=== PATIENT | male | born 1935 | race African-American/Black ===

== ENCOUNTER 2019-04-12 10:11 | Emergency (ER) | payer OTHER ==
[2019-04-12 11:33] LABS: Absolute Lymphocytes (CBC) 0.8 K/uL (0.7-4.9); Basophils % 0.3 % (0-1.3); Hematocrit 30.8 % (39.6-49.0); Lymphocytes % 8.6 % (15.3-44.8); MPV 8.6 fL (7.6-11.3); RBC Red Blood Cell Count 3.06 M/uL (4.33-5.43)
--- NOTE | 2019-04-12 11:37 | RAD REPORT ---
EXAM DESCRIPTION: RAD - Chest Single View - 04/12/2019 11:29 am CLINICAL HISTORY: Syncope Chest pain. COMPARISON: CHEST SINGLE VIEW dated 02/04/2015; CHEST SINGLE VIEW dated 12/04/2012; CHEST PA AND LAT 2 VIEW dated 06/15/2008; CHEST SINGLE VIEW dated 11/20/2007 FINDINGS: Portable technique limits examination quality. The lungs are underinflated but grossly clear. The heart is normal in size. Prominent tortuous thorac ic aorta.
[2019-04-12 11:48] LABS: Protime INR 1.48
[2019-04-12 11:59] LABS: ALT/SGPT 20 U/L (12-78); AST/SGOT 27 U/L (15-37); Albumin 2.9 g/dL (3.4-5.0); Alkaline Phosphatase 210 U/L (45-117); BUN Blood Urea Nitrogen 16 mg/dL (7-18); Bicarbonate 28 mmol/L (21-32); Bilirubin Direct 0.2 mg/dL (0-0.2); Bilirubin Total 0.6 mg/dL (0.2-1.0); Glucose Level 172 mg/dL (74-106); Magnesium 1.8 mg/dL (1.8-2.4); NT PRO-BNP 595 pg/mL (<450); Protein, Total 7.8 g/dL (6.4-8.2); Sodium Level 137 mmol/L (136-145); Troponin (Emerg Dept Use Only) < 0.02 ng/mL (0.0-0.045)
[2019-04-12] MEDS ORDERED: NA CHLORIDE 0.9% 500 ML ONE (12:34)
--- NOTE | 2019-04-12 13:24 | RAD REPORT ---
EXAM DESCRIPTION: CT - Head Brain Wo Cont - 04/12/2019 1:08 pm CLINICAL HISTORY: Syncope COMPARISON: 2014 TECHNIQUE: Computed axial tomography of the head was obtained. IV contrast was not requested. All CT scans are performed using dose optimization technique as appropriate and may include automated exposure control or mA/KV adjustment according to patient size. FINDINGS: 6 centimeter area of increased density in a gyriform distribution within the left parietal lobe has the appearance of hemorrhagic infarction. There is no shift of midline structures. The ventricles are normal in caliber. No extra-axial fluid collection is noted. Mild to moderate low-density areas within periventricular, deep and subcortical white matter likely r epresent ischemic changes secondary to small vessel disease. Fluid within the sinuses/ mastoids is not seen. 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 A less likely consideration is that there is a component of hemorrhagic metastatic disease. Follow-up with MRI would be helpful Exam discussed with Dr Rosenthal in the Emergency Room at 1:15 p.m. April 12, 2019
--- NOTE | 2019-04-12 13:24 | EKG ---
Test Date: 2019-04-12 Test Time: 10:40:02 Safety Director: FELIX MEASUREMENT RESULTS: Intervals: Rate: 67 NE: 212 QRSD: 72 QT: 380 QTc: 401 Upper Tract: P: 93 NE: 212 QRS: 72 T: 58 INTERPRETIVE STATEMENTS: Sinus rhythm with 1st degree AV block Otherwise normal ECG Compared to ECG 02/05/2015 06:29:15 Atrial premature complex(es) no longer present Electronically Signed On 04-12-19 13:24:25 POLICE RESERVES COMMANDER by Spencer Gonzalez
--- NOTE | 2019-04-12 13:31 | ER ---
Nurse's Notes [facility] Name: Markell Bingham Sr Age: 83 yrs Sex: Male : 1935 Arrival Date: 04/12/2019 Time: 10:22 Bed 18 Private MD: Diagnosis: 6 CM hemorrhagic infarct left parietal lobe Presentation: 04/12 10:22 Presenting complaint: EMS states: pt had a syncopal episode this morning. Family ca1 reports pt has been lethargic and weak for the past few days. Pt has Stage 4 Liver and Pancreatic Cancer diagnosed 6 months ago. Pt was on chemo but stopped when he had a stroke on this year. R sided stroke which pt is still undergoing PT and speech therapy. Family also reports pt may be dehydrated from decreased oral fluid intake in the past days. Initially pt's BP is 80/60 but has since increased to 133/64. Sinus rhythm on EKG, BGL 194. Transition of care: patient was not received from another setting of care. Onset of symptoms was April 12, 2019. Risk Assessment: Do you want to hurt yourself or someone else? Patient reports no desire to harm self or others. Initial Sepsis Screen: Does the patient meet any 2 criteria? No. Patient's initial sepsis screen is negative. Does the patient have a suspected source of infection? No. Patient's initial sepsis screen is negative. Care prior to arrival: Glucose check: 194. 10:22 Method Of Arrival: EMS: [facility] ca1 10:22 Acuity: [facility] 3 ca1 13:15 Acuity: [facility] 2 iw Historical: - Allergies: 10:31 Codeine; ca1 10:31 Dilaudid; ca1 - PMHx: 10:31 Diabetes - NIDDM; CVA; Hypertension; COPD; Liver CA; Pancreatic CA; ca1 - PSHx: 10:31 Cholecystectomy; Knee surgery; Bowel resection; Tonsillectomy; Appendectomy; Back ca1 Surgery; - Immunization history:: Adult Immunizations up to date, Pneumococcal vaccine is up to date, Flu vaccine is not up to date. - Social history:: Smoking status: Patient/guardian denies using tobacco. - Ebola Screening: : Patient negative for fever greater than or equal to 101.5 degrees Fahrenheit, and additional compatible Ebola Virus Disease symptoms Patient denies exposure to infectious person Patient denies travel to an Ebola-affected area in the 21 days before illness onset No symptoms or risks identified at this time. Screenin:30 Abuse screen: Denies threats or abuse. Denies injuries from another. Nutritional ca1 screening: No deficits noted. Tuberculosis screening: No symptoms or risk factors identified. Fall Risk Fall in past 12 months (25 points). Secondary diagnosis (15 points) CVA, IV access (20 points). Ambulatory Aid- Crutches/Cane/Walker (15 pts). Gait- Weak (10 pts.). Assessment: 10:30 General: Appears in no apparent distress. comfortable, Behavior is calm, cooperative, ca1 appropriate for age. General: Reports fatigue for >3 days. Pain: Denies pain. Neuro: Level of Consciousness is obeys commands, lethargic, Oriented to person, place, time, situation, Reports a syncopal episode. Cardiovascular: Heart tones S1 S2 present Capillary refill < 3 seconds Patient's skin is warm and dry. Rhythm is sinus rhythm. Respiratory: Airway is patent Respiratory effort is even, unlabored, Respiratory pattern is regular, symmetrical, Breath sounds are clear bilaterally. GI: Abdomen is flat, non-distended, Bowel sounds present X 4 quads. Abd is soft and non tender X 4 quads. : No deficits noted. No signs and/or symptoms were reported regarding the genitourinary system. EENT: No signs and/or symptoms were reported regarding the EENT system. Derm: Skin is intact, is healthy with good turgor, Skin is pink, warm \T\ dry. Musculoskeletal: Circulation, motion, and sensation intact. Capillary refill < 3 seconds. 11:28 Reassessment: Patient appears in no apparent distress at this time. No changes from ca1 previously documented assessment. Patient and/or family updated on plan of care and expected duration. Pain level reassessed. 12:34 Reassessment: Patient appears in no apparent distress at this time. No changes from ca1 previously documented assessment. Patient and/or family updated on plan of care and expected duration. Pain level reassessed. 13:39 Reassessment: Patient appears in no apparent distress at this time. No changes from ca1 previously documented assessment. Patient and/or family updated on plan of care and expected duration. Pain level reassessed. 14:35 Reassessment: Patient appears in no apparent distress at this time. No changes from ca1 previously documented assessment. Report given to [employer]. Vital Signs: 10:31 BP 110 / 59; Pulse 68; Resp 17 S; Temp 97.9(O); Pulse Ox 100% on R/A; Weight 70.76 kg ca1 (R); Height 5 ft. 6 in. (167.64 cm) (R); Pain 0/10; 11:30 BP 133 / 66; Pulse 73; Resp 15 S; Pulse Ox 100% on R/A; ca1 12:55 BP 152 / 78 Supine; Pulse 70; Resp 14 S; Pulse Ox 100% on R/A; ca1 12:57 BP 152 / 69 Sitting; Pulse 72; Resp 18 S; Pulse Ox 100% on R/A; ca1 12:59 BP 117 / 60 Standing; Pulse 97; Resp 22 S; Pulse Ox 98% on R/A; ca1 13:40 BP 152 / 69; Pulse 69; Resp 17 S; Pulse Ox 100% on R/A; ca1 14:27 BP 132 / 74; Pulse 74; Resp 16 S; Pulse Ox 100% on R/A; ca1 10:31 Body Mass Index 25.18 (70.76 kg, 167.64 cm) ca1 Jayson Coma Score: 10:40 Eye Response: spontaneous(4). Verbal Response: oriented(5). Motor Response: obeys ca1 commands(6). Total: 15. 14:30 Eye Response: spontaneous(4). Verbal Response: oriented(5). Motor Response: obeys ca1 commands(6). Total: 15. ED Course: 10:22 Patient arrived in ED. ca1 10:27 Ashvin Rosenthal MD is Attending Physician. kdr 10:28 Triage completed. ca1 10:30 Patient has correct armband on for positive identification. Placed in gown. Bed in low ca1 position. Call light in reach. Side rails up X2. monitor technician on. Pulse ox on. NIBP on. Warm blanket given. 10:30 No provider procedures requiring assistance completed. ca1 10:31 Arm band placed on right wrist. ca1 10:32 Heidy Jacobs, GARRET is Primary Nurse. ca1 10:48 EKG done, by auto brake technician. reviewed by Ashvin Rosenthal MD. at1 11:20 Missed attempt(s): 22 gauge in right forearm. Bleeding controlled, band aid applied, dh3 catheter tip intact. 11:24 Initial lab(s) drawn, by me, sent to lab. Missed attempt(s): 20 gauge in left dh3 antecubital area. Bleeding controlled, band aid applied, catheter tip intact. 11:30 XRAY Chest (1 view) In Process Unspecified. EDMS 12:40 Missed attempt(s): 14 gauge in left antecubital area. Bleeding controlled, band aid ca1 applied, catheter tip intact. 12:50 Inserted saline lock: 24 gauge in left hand, using aseptic technique. ca1 13:09 CT Head Brain wo Cont In Process Unspecified. EDMS 14:00 Inserted saline lock: 20 gauge in right antecubital area, using aseptic technique. ca1 ,using aseptic technique. by CN. Regina 14:05 Inserted saline lock: 20 gauge in left antecubital area, using aseptic technique. ca1 ,using aseptic technique. by CN. Regina 14:38 Patient transferred, IV remains in place. ca1 Administered Medications: 12:50 Drug: NS 0.9% 500 ml Route: IV; Rate: bolus; Site: left hand; ca1 13:30 Follow up: Response: No adverse reaction; IV Status: Completed infusion; IV Intake: ca1 500ml 14:07 Drug: Cardene 5 mg/hr Route: IV; Rate: calculated rate; Site: right antecubital; ca1 14:34 Follow up: IV Status: Infusion continued upon transfer ca1 14:33 Drug: Mannitol 25% 1 g/kg Route: IV; Rate: per protocol; Site: left antecubital; ca1 14:35 Follow up: IV Status: Infusion continued upon transfer ca1 Point of Care Testin:00 BGL from EMS 194. , Gluc 172 ca1 Ranges: Intake: 13:30 IV: 500ml; Total: 500ml. ca1 Outcome: 13:30 ER care complete, transfer ordered by . kdr 14:38 Transferred by helicopter to [facility], Transfer form completed. ca1 X-rays sent w/ patient. 14:38 Condition: stable 14:38 Instructed on the need for admit. 14:40 Patient left the ED. ca1 Signatures: Dispatcher [employer] EDMS Ashvin Rosenthal MD MD kdr Williams, Irene, RN RN iw Gonzales, Amanda, route salesman EKG Tat1 Foster, Svitlana dh3 Acob, Heidy, RN RN ca1
--- NOTE | 2019-04-12 13:31 | EDPHYS ---
Physician Documentation [facility] Name: Markell Bingham Sr Age: 83 yrs Sex: Male : 1935 Arrival Date: 04/12/2019 Time: 10:22 Bed 18 Private MD: ED Physician Ashvin Rosenthal HPI: 04/12 14:55 This 83 yrs old Black Male presents to ER via EMS with complaints of Syncope. kdr 14:55 The patient has experienced syncope, became unresponsive, lost consciousness. Onset: kdr The symptoms/episode began/occurred suddenly, just prior to arrival. Duration: The patient has had multiple episodes, The patient had several episodes over about five minutes each lasting about a minute. Since then he has not had any focal c/o in the ED. He had a recent (March) CVA and was treated at [facility]. Family requested that he be transferred back there for treatment of his current condition. Context: the episode(s) was witnessed, by family, son, occurred at home, occurred while the patient was defecating, Just prior to the episode the patient experienced no apparent symptoms. Associated injury: The patient did not suffer any apparent associated injury. Associated signs and symptoms: The patient has no apparent associated signs or symptoms. Current symptoms: Currently, the patient is not experiencing any symptoms, the patient feels back to baseline. The patient has not experienced similar symptoms in the past. As noted above. Historical: - Allergies: 10:31 Codeine; ca1 10:31 Dilaudid; ca1 - PMHx: 10:31 Diabetes - NIDDM; CVA; Hypertension; COPD; Liver CA; Pancreatic CA; ca1 - PSHx: 10:31 Cholecystectomy; Knee surgery; Bowel resection; Tonsillectomy; Appendectomy; Back ca1 Surgery; - Immunization history:: Adult Immunizations up to date, Pneumococcal vaccine is up to date, Flu vaccine is not up to date. - Social history:: Smoking status: Patient/guardian denies using tobacco. - Ebola Screening: : Patient negative for fever greater than or equal to 101.5 degrees Fahrenheit, and additional compatible Ebola Virus Disease symptoms Patient denies exposure to infectious person Patient denies travel to an Ebola-affected area in the 21 days before illness onset No symptoms or risks identified at this time. ROS: 14:55 Constitutional: Negative for fever, chills, and weight loss, Eyes: Negative for injury, kdr pain, redness, and discharge, ENT: Negative for injury, pain, and discharge, Neck: Negative for injury, pain, and swelling, Cardiovascular: Negative for chest pain, palpitations, and edema, Respiratory: Negative for shortness of breath, cough, wheezing, and pleuritic chest pain, Abdomen/GI: Negative for abdominal pain, nausea, vomiting, diarrhea, and constipation, Back: Negative for injury and pain, : Negative for injury, bleeding, discharge, and swelling, MS/Extremity: Negative for injury and deformity, Skin: Negative for injury, rash, and discoloration, Psych: Negative for depression, anxiety, suicide ideation, homicidal ideation, and hallucinations, Allergy/Immunology: Negative for hives, rash, and allergies, Endocrine: Negative for neck swelling, polydipsia, polyuria, polyphagia, and marked weight changes, Hematologic/Lymphatic: Negative for swollen nodes, abnormal bleeding, and unusual bruising. 14:55 Neuro: Positive for loss of consciousness, syncope, Negative for altered mental status, dizziness, headache, numbness, seizure activity, speech changes, tingling, tinnitus, tremor, visual changes, The patient is consistently weak given his underlying liver/pancreatic cancer and then subsequent stroke. Exam: 14:55 Constitutional: This is a well developed, well nourished patient who is awake, alert, kdr and in no acute distress. Head/Face: Normocephalic, atraumatic. Eyes: Pupils equal round and reactive to light, extra-ocular motions intact. Lids and lashes normal. Conjunctiva and sclera are non-icteric and not injected. Cornea within normal limits. Periorbital areas with no swelling, redness, or edema. Neck: Trachea midline, no thyromegaly or masses palpated, and no cervical lymphadenopathy. Supple, full range of motion without nuchal rigidity, or vertebral point tenderness. No Meningismus. Chest/axilla: Normal chest wall appearance and motion. Nontender with no deformity. No lesions are appreciated. Cardiovascular: Regular rate and rhythm with a normal S1 and S2. No gallops, murmurs, or rubs. Normal PMI, no JVD. No pulse deficits. Respiratory: Lungs have equal breath sounds bilaterally, clear to auscultation and percussion. No rales, rhonchi or wheezes noted. No increased work of breathing, no retractions or nasal flaring. Abdomen/GI: Soft, non-tender, with normal bowel sounds. No distension or tympany. No guarding or rebound. No evidence of tenderness throughout. Back: No spinal tenderness. No costovertebral tenderness. Full range of motion. Skin: Warm, dry with normal turgor. Normal color with no rashes, no lesions, and no evidence of cellulitis. MS/ Extremity: Pulses equal, no cyanosis. Neurovascular intact. Full, normal range of motion. Psych: Awake, alert, with orientation to person, place and time. Behavior, mood, and affect are within normal limits. 14:55 Neuro: Orientation: appropriate for stated age, Mentation: responsive to voice able to follow commands, slow to respond, responsive to pain, Memory: no acute changes, Cranial nerves: no acute changes, Cerebellar function: unable to test, Motor: moves all fours, Sensation: no acute changes, Gait: unable to assess, generally weak. Vital Signs: 10:31 BP 110 / 59; Pulse 68; Resp 17 S; Temp 97.9(O); Pulse Ox 100% on R/A; Weight 70.76 kg ca1 (R); Height 5 ft. 6 in. (167.64 cm) (R); Pain 0/10; 11:30 BP 133 / 66; Pulse 73; Resp 15 S; Pulse Ox 100% on R/A; ca1 12:55 BP 152 / 78 Supine; Pulse 70; Resp 14 S; Pulse Ox 100% on R/A; ca1 12:57 BP 152 / 69 Sitting; Pulse 72; Resp 18 S; Pulse Ox 100% on R/A; ca1 12:59 BP 117 / 60 Standing; Pulse 97; Resp 22 S; Pulse Ox 98% on R/A; ca1 13:40 BP 152 / 69; Pulse 69; Resp 17 S; Pulse Ox 100% on R/A; ca1 14:27 BP 132 / 74; Pulse 74; Resp 16 S; Pulse Ox 100% on R/A; ca1 10:31 Body Mass Index 25.18 (70.76 kg, 167.64 cm) ca1 Jayson Coma Score: 10:40 Eye Response: spontaneous(4). Verbal Response: oriented(5). Motor Response: obeys ca1 commands(6). Total: 15. 14:30 Eye Response: spontaneous(4). Verbal Response: oriented(5). Motor Response: obeys ca1 commands(6). Total: 15. MDM: 13:30 Patient medically screened. kdr 14:55 Data reviewed: vital signs, nurses notes, lab test result(s), EKG, radiologic studies. kdr Counseling: I had a detailed discussion with the patient and/or guardian regarding: the historical points, exam findings, and any diagnostic results supporting the discharge/admit diagnosis, lab results, radiology results, the need to transfer to another facility. 04/12 10:28 Order name: Basic Metabolic Panel; Complete Time: 12:02 kdr 04/12 10:28 Order name: CBC with Diff; Complete Time: 12:02 kdr 04/12 10:28 Order name: LFT's; Complete Time: 12:02 kdr 04/12 10:28 Order name: Magnesium; Complete Time: 12:02 kdr 04/12 10:28 Order name: NT PRO-BNP; Complete Time: 12:02 kdr 04/12 10:28 Order name: PT-INR; Complete Time: 12:02 kdr 04/12 10:28 Order name: Troponin (emerg Dept Use Only); Complete Time: 12:02 kdr 04/12 10:28 Order name: XRAY Chest (1 view); Complete Time: 13:28 kdr 04/12 10:28 Order name: EKG; Complete Time: 10:31 kdr 04/12 10:28 Order name: Cardiac monitoring; Complete Time: 12:09 kdr 04/12 12:03 Order name: CT Head Brain wo Cont; Complete Time: 13:45 kdr 04/12 10:28 Order name: EKG - Nurse/Tech; Complete Time: 12:09 kdr 04/12 10:28 Order name: IV Saline Lock; Complete Time: 13:05 kdr 04/12 10:28 Order name: Labs collected and sent; Complete Time: 12:09 kdr 04/12 10:28 Order name: O2 Per Protocol; Complete Time: 12:09 kdr 04/12 10:28 Order name: O2 Sat Monitoring; Complete Time: 12:09 kdr 04/12 12:25 Order name: Orthostatic Blood Pressure; Complete Time: 13:04 kdr Administered Medications: 12:50 Drug: NS 0.9% 500 ml Route: IV; Rate: bolus; Site: left hand; ca1 13:30 Follow up: Response: No adverse reaction; IV Status: Completed infusion; IV Intake: ca1 500ml 14:07 Drug: Cardene 5 mg/hr Route: IV; Rate: calculated rate; Site: right antecubital; ca1 14:34 Follow up: IV Status: Infusion continued upon transfer ca1 14:33 Drug: Mannitol 25% 1 g/kg Route: IV; Rate: per protocol; Site: left antecubital; ca1 14:35 Follow up: IV Status: Infusion continued upon transfer ca1 Point of Care Testin:00 BGL from EMS 194. , Gluc 172 ca1 Ranges: Critical Glucose Levels:Adult <50 mg/dl or >400 mg/dl <40 mg/dl or >180 mg/dl Disposition: 04/12/19 13:30 Transfer ordered to [facility]. Diagnosis is 6 CM hemorrhagic infarct left parietal lobe. - Reason for transfer: Higher level of care. - Accepting physician is [facility]. - Condition is Serious. - Problem is new. - Symptoms have improved. Signatures: Dispatcher [employer] EDMS Ashvin Rosenthal MD MD kdr Heidy Jacobs RN RN ca1 Corrections: (The following items were deleted from the chart) 13:39 13:30 04/12/2019 13:30 Transfer ordered to [facility]. Diagnosis is kdr 6 CM hemorrhagic infarct left parietal lobe. Reason for transfer: Higher level of care. Accepting physician is [facility]. Condition is Serious. Problem is new. Symptoms have improved. kdr 14:40 13:39 04/12/2019 13:30 Transfer ordered to [facility]. Diagnosis is ca1 6 CM hemorrhagic infarct left parietal lobe. Reason for transfer: Higher level of care. Accepting physician is [facility]. Condition is Serious. Problem is new. Symptoms have improved. kdr
[2019-04-12] MEDS ORDERED: Nicardipine/NS 25 MG/250 ML KIT IV ONE (14:10)
[2019-04-12] MEDS ORDERED: MANNITOL 25% 0 ML IV ONE (14:15)
[2019-04-12] MEDS ORDERED: MANNITOL 20% IV ONE (15:00)
[2019-04-13 01:36] VITALS: TEMP 97.9
[2019-04-13 01:45] VITALS: O2SAT 100
[2019-04-13 01:46] VITALS: BP 132/74
== END 2019-04-12 14:40 | disposition short-term general hospital (02) ==
LOC: ER 10:11
DX: I63.9 Cerebral infarction, unspecified (principal); I10 Essential (primary) hypertension; Z85.05 Personal history of malignant neoplasm of liver; Z85.07 Personal history of malignant neoplasm of pancreas; Z86.73 Personal history of transient ischemic attack (TIA), and cerebral infarction without residual deficits
CPT/HCPCS: 96365; 96361; 93005; 85025; 80048; 36415; 83735; 85610; 80076; 84484; 83880; 70450; 71045; 96375; 99285; J7040; J2150